=== PATIENT | female | born 1985 | race Two or more races ===

== ENCOUNTER 2019-03-24 05:47 | Inpatient (IN) | payer OTHER ==
[~2019-03-24] VITALS: Ht 154.9 cm; Wt 2.7 kg
[2019-03-24] MEDS ORDERED: METHYLDOPA250 MG PO (07:08)
== END 2019-03-27 13:39 | disposition home or self-care (01) | DRG 783 ==
LOC: OB/GYN 05:47 → LDR 05:47 → OB/GYN 13:27
PROVIDERS: ADMIT Specialist
PROC: 0UL70ZZ Occlusion of Bilateral Fallopian Tubes, Open Approach (ICD-10-PCS; 2019-03-24)
PROC: 4A1HXCZ Monitoring of Products of Conception, Cardiac Rate, External Approach (ICD-10-PCS; 2019-03-24)
PROC: 10D00Z1 Extraction of Products of Conception, Low, Open Approach (ICD-10-PCS; principal; 2019-03-24 10:00)
DX: O82 Encounter for cesarean delivery without indication (principal); O24.12 Pre-existing type 2 diabetes mellitus, in childbirth; O64.1XX0 Obstructed labor due to breech presentation, not applicable or unspecified; E11.9 Type 2 diabetes mellitus without complications; Z3A.37 37 weeks gestation of pregnancy; Z37.0 Single live birth; Z79.4 Long term (current) use of insulin; Z30.2 Encounter for sterilization

== ENCOUNTER 2020-04-16 12:23 | Emergency (ER) | payer OTHER ==
[~2020-04-16] VITALS: Ht 154.9 cm; Wt 67.1 kg
[~2020-04-16 12:23] MED LIST: METHYLDOPA250 MG PO
[2020-04-16] MEDS ORDERED: FORTAMET500 MG PO (12:37)
== END 2020-04-16 15:49 | disposition home or self-care (01) ==
LOC: ER 12:23
DX: L02.512 Cutaneous abscess of left hand (principal); B96.29 Other Escherichia coli [E. coli] as the cause of diseases classified elsewhere; B95.1 Streptococcus, group B, as the cause of diseases classified elsewhere; B96.89 Other specified bacterial agents as the cause of diseases classified elsewhere

== ENCOUNTER 2022-02-09 16:28 | Inpatient (IN) | payer OTHER ==
[~2022-02-09] VITALS: Ht 154.9 cm; Wt 73.0 kg
[~2022-02-09 16:28] MED LIST changes: +FORTAMET500 MG PO
== END 2022-02-15 15:56 | disposition home or self-care (01) | DRG 439 ==
LOC: ER 16:28 → MEDI 02-10 00:11
PROVIDERS: ADMIT Internal Medicine; ATTEND Internal Medicine
PROC: BW21ZZZ Computerized Tomography (CT Scan) of Abdomen and Pelvis (ICD-10-PCS; principal; 2022-02-09)
PROC: BF37ZZZ Magnetic Resonance Imaging (MRI) of Pancreas (ICD-10-PCS; 2022-02-11)
PROC: BW30Y0Z Magnetic Resonance Imaging (MRI) of Abdomen using Other Contrast, Unenhanced and Enhanced (ICD-10-PCS; 2022-02-14)
DX: K85.80 Other acute pancreatitis without necrosis or infection (principal); K86.3 Pseudocyst of pancreas; K86.2 Cyst of pancreas; K29.60 Other gastritis without bleeding; D13.6 Benign neoplasm of pancreas; K76.0 Fatty (change of) liver, not elsewhere classified; E11.9 Type 2 diabetes mellitus without complications; Z79.4 Long term (current) use of insulin; Z20.822 Contact with and (suspected) exposure to COVID-19
CPT/HCPCS: 74182